=== PATIENT | male | born 1940 | race Caucasian/White ===

== ENCOUNTER 2017-04-12 09:42 | Inpatient (IN) | payer MEDICARE ==
--- NOTE | 2017-03-30 10:30 | HP ---
AMENDED REPORT NOW INCLUDES COSIGNER DESIGNATION - ESIGNED BEFORE ADJUSTMENTS HISTORY AND PHYSICAL: DATE OF ADMISSION/SURGERY: 04/12/17 DATE OF OFFICE VISIT: 03/30/17 SURGEON: Mariana Davis MD * (DICTATED BY SHARONA BANKS) PROCEDURE: Left total knee arthroplasty. CHIEF COMPLAINT: Left knee pain. HISTORY OF PRESENT ILLNESS: Mr. Rosales is a 76-year-old gentleman with continued complaints of left knee pain secondary to severe osteoarthritis. He has failed conservative management and has elected to proceed with a left total knee arthroplasty. PAST MEDICAL HISTORY: Coronary artery disease, high cholesterol, diabetes, history of prostate cancer. PAST SURGICAL HISTORY: CABG, prostatectomy, and appendectomy. CURRENT MEDICATIONS: 1. Toprol 25 mg daily. 2. Aspirin 81 mg daily. 3. Zetia 10 mg daily. 4. Metformin 1000 mg 2 tabs twice a day. 5. Januvia 50 mg daily. 6. Crestor 20 mg daily. 7. Diovan 8 mg daily. 8. Invokana 100 mg daily. ALLERGIES: None. FAMILY HISTORY: Diabetes, heart disease, stroke. SOCIAL HISTORY: He is a 76-year-old gentleman. 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 He does not smoke or use drugs. He uses occasional alcohol. REVIEW OF SYSTEMS: A complete 14-point review of systems is reviewed with the patient, is positive for diabetes. PHYSICAL EXAMINATION GENERAL: He is well developed, well nourished, in no acute distress. VITAL SIGNS: He stands 6 feet tall, weighs 200 pounds. His blood pressure is 116/68, his heart rate is 70. HEENT: Normocephalic, atraumatic. NECK: Supple. No palpable lymph nodes. PULMONARY: Lungs are clear to auscultation bilaterally. CARDIO: Regular rate and rhythm. Strong S1, S2. ABDOMEN: Soft, nontender, nondistended. NEUROLOGIC: He is alert and oriented x3. Cranial nerves II through XII are intact. MUSCULOSKELETAL: Left lower extremity, the skin is intact. There are no open wounds or abrasions. He has some tenderness over the medial and lateral joint line, 5 to 125 degrees of range of motion, no varus or valgus instability, 2+ dorsalis pedis pulses, and intact sensation. ASSESSMENT AND PLAN: Mr. Rosales is a 76-year-old gentleman with complaints of left knee pain secondary to severe osteoarthritis. He has failed conservative management and has elected to proceed with a left total knee arthroplasty, which is scheduled for 04/12/[address] Davis discussed the risks and benefits of the surgery at today's visit and all of his questions were answered. Coumadin, Percocet, and Colace were sent to his pharmacy for postoperative pain control and DVT prophylaxis. He will see Dr. Davis back 2 weeks after the surgery. SHARONA BANKS [id number]/[facility] #: [id number] JAK
[~2017-04-12 09:42] MED LIST: Buffered Lidocaine 0.9% SYRIN* 5 ML/SYR SYRINGE INTRADERM ONE; Gabapentin CAP(*) 400 MG PO ONE
[2017-04-12] MEDS ORDERED: ceFAZolin 2 GM PREMIX (*) 50 ML IVPB ONE (09:52)
[2017-04-12] MEDS ORDERED: Gabapentin CAP(*) 300 MG ONE (09:52)
[2017-04-12] MEDS ORDERED: Buffered Lidocaine 0.9% SYRIN* 5 ML/SYR SYRINGE ONE (09:52)
[2017-04-12] MEDS ORDERED: Metoprolol Succinate XL TAB* 25 MG PO ONE (12:00)
[2017-04-12] MEDS ORDERED: fentaNYL* 50 MCG/ML 2 ML VIAL (100 MCG VIAL) ONE ×3 (12:15→15:58)
[2017-04-12] MEDS ORDERED: Midazolam* 1 MG/ML 5 ML VIAL (5 MG) ONE ×2 (12:16→13:30)
[2017-04-12] MEDS ORDERED: Lidocaine 2% EPI 1:200000 MPF* 20 ML VIAL ONE ×2 (12:18→12:40)
[2017-04-12] MEDS ORDERED: Lactated Ringers 500 ml BAG* 500 ML IV PRN (13:26)
[2017-04-12] MEDS ORDERED: DiMENhydriNATE IV* 50 MG/ML VIAL IV PUSH PRN (13:35)
[2017-04-12] MEDS ORDERED: Ketorolac INJ* 30 MG/ML 1 ML VIAL IV PRN (13:35)
[2017-04-12] MEDS ORDERED: HYDROcodone/ACETAMIN 5-325 MG* 1 TAB PO PRN (13:35)
[2017-04-12] MEDS ORDERED: Ropivacaine 0.2% EPIDURAL* 200 MG/100 ML BAG EPIDURAL SCH (14:00)
[2017-04-12] MEDS ORDERED: Propofol* 10 MG/ML 20 ML BTL IV PUSH ONE (14:04)
[2017-04-12] MEDS ORDERED: Phenylephrine IV* 40 MCG/ML 10 ML SYRINGE ONE (14:18)
[2017-04-12] MEDS ORDERED: Ropivacaine 0.2% EPIDURAL* 200 MG/100 ML BAG EPIDURAL ONE (14:20)
[2017-04-12] MEDS ORDERED: Polyethylene Glycol 3350* 17 GM PACKET PO PRN (15:32)
[2017-04-12] MEDS ORDERED: Bisacodyl SUPP* 10 MG SUPP PR PRN (15:32)
[2017-04-12] MEDS ORDERED: Acetaminophen TAB* 325 MG PO PRN (15:32)
[2017-04-12] MEDS ORDERED: diPHENhydraMINE IV* 50 MG/ML 1 ml VIAL (BENADRYL) IV PRN (15:32)
[2017-04-12] MEDS ORDERED: Ketorolac INJ* 30 MG/ML 1 ML VIAL ONE (15:58)
[2017-04-12] MEDS: fentaNYL* 50 MCG/ML 2 ML VIAL (100 MCG VIAL) IV PRN ×2 (16:03→16:12)
--- NOTE | 2017-04-12 16:32 | RAD ---
INDICATION: Status post total left knee replacement surgery. TECHNIQUE: 2 views of the left knee were obtained. FINDINGS: The patient is status post total left knee replacement surgery. The bones and prostheses are in normal alignment. There is a surgical drain present anterior to the distal femur. IMPRESSION: STATUS POST TOTAL LEFT KNEE REPLACEMENT SURGERY.
[2017-04-12] MEDS ORDERED: diPHENhydraMINE IV* 50 MG/ML 1 ml VIAL (BENADRYL) ONE (16:36)
[2017-04-12] MEDS ORDERED: Warfarin TAB(*) 6 MG PO ONE (17:00)
[2017-04-12] MEDS ORDERED: Valsartan TAB* 40 MG PO ONE (17:14)
[2017-04-12] MEDS ORDERED: oxyCODONE/Acetamin 5/325 MG* TAB ONE (18:05)
[2017-04-12] MEDS: Atorvastatin* 40 MG TAB PO SCH (18:20)
[2017-04-12] MEDS: Valsartan TAB* 80 MG PO SCH (18:20)
[2017-04-12] MEDS: PTO SitaGLIPtin (NF) 100 MG TAB PO SCH (18:21)
[2017-04-12] MEDS: Docusate CAP* 100 MG PO SCH (21:38)
[2017-04-12] MEDS: metFORMIN* 1,000 MG TAB PO SCH (21:38)
[2017-04-12] MEDS: ceFAZolin 1 GM VIAL(*) 1 GM in NS 0.9% 50 ML* 50 ML IVPB SCH (21:38)
[2017-04-12] MEDS ORDERED: oxyCODONE TAB* 5 MG TAB PO PRN (21:41)
[2017-04-12] MEDS ORDERED: Ondansetron TAB* 4 MG PO PRN (21:41)
[2017-04-12] MEDS ORDERED: oxyCODONE/Acetamin 5/325 MG* TAB PO PRN (21:41)
--- NOTE | 2017-04-12 23:08 | CONS ---
CC: Dr. Hieu Kirkland CONSULTATION REPORT: DATE OF CONSULT: 04/12/2017. REFERRING SURGEON: Dr. Mariana Davis. PRIMARY CARE DOCTOR: Dr. Francisco Kwong. MY ATTENDING WHILE IN THE HOSPITAL: Dr. Hieu Kirkland. REASON FOR CONSULT: Comanagement of comorbid medical conditions. HISTORY OF PRESENT ILLNESS: Mr. Rader is a 76-year-old gentleman, who is status post a left total knee arthroplasty. The patient states he has moderate throbbing pain at his surgical site. The patient underwent a spinal anesthesia which is beginning to wear off. The patient refused to rate his pain on a scale of 1 to 10. The patient denies any other symptoms including chest pain, shortness of breath, fever, chills, nausea, vomiting, headache, change in vision , dizziness, or abdominal pain. The patient denies any recent travel or any sick contacts. The patient denies any changes in urine. The patient is status post radical prostatectomy in 1998, but denies any urinary incontinence or retention. The patient denies any personal or family history of blood clots. The patient is a diabetic and never checks his blood sugar at home. The patient states his most recent hemoglobin A1c was around 7. The patient had an EBL of approximately 200 intraop and is currently on 2 L oxygen by nasal cannula. The patient does not wear oxygen at home. The patient only took his Toprol this morning and held all his other medications. PAST MEDICAL HISTORY: Coronary artery disease, high cholesterol, diabetes, history of prostate cancer diagnosed in 1998. PAST SURGICAL HISTORY: Five-vessel CABG in 1997, radical prostatectomy in 1998 , appendectomy 7 years ago. CURRENT MEDICATIONS: 1. Toprol 25 mg p.o. daily. 2. Metformin 1000 mg 2 tabs b.i.d. 3. Januvia 50 mg p.o. daily. 4. Crestor 20 mg p.o. daily. 5. Diovan 80 mg p.o. daily. 6. Invokana 100 mg p.o. daily. The patient took an aspirin 81 mg p.o. daily until 2 weeks ago. ALLERGIES: None. FAMILY HISTORY: The patient endorses a family history significant for diabetes , heart disease, stroke, ovarian cancer, and thyroid cancer. SOCIAL HISTORY: The patient is , has 1 daughter. Lives in [place]. 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 He does not smoke or use drugs. The patient uses occasional alcohol. REVIEW OF SYSTEMS: A 14-point review of systems was reviewed with the patient and is negative except for as stated in the HPI. PHYSICAL EXAM: General: The patient is a 76-year-old male, who appears his stated age, who is sitting comfortably in the bed in the PACU, in no acute distress. Vital Signs: Temperature at 1532 is 97.7. Vital Signs at the time of examination, pulse rate 67, respiratory rate 14, oxygen saturation 96% on 2 L of oxygen, and blood pressure 167/81. HEENT: Head normocephalic, atraumatic. Eyes: Sclerae anicteric. No conjunctival injection. Pharynx nonerythematous. Mucous membranes moist. Neck: Supple and nontender. No lymphadenopathy and no carotid bruits auscultated. Cardiac: Regular rate and rhythm. Grade 2/6 systolic murmur heard best at the second intercoastal space. The right sternal border auscultated, no clicks, gallops, or rubs. Pulses 2+ in the bilateral radial, posterior tibialis, and dorsalis pedis areas. Respiratory: Clear to auscultation bilaterally. No wheezes, rales, or rhonchi. Good air exchange bilaterally. Abdomen: Hyperactive bowel sounds present in all 4 quadrants, nondistended. There is a pouch in the midline of the abdomen consistent with diastasis recti. No tenderness to palpation, no masses, no hepatosplenomegaly, and no abdominal bruits auscultated. Genitourinary: No suprapubic tenderness. Neurologic: Alert and oriented x3. Cranial nerves II through XII are grossly intact. Skin: Clean, dry, intact, and nondiaphoretic. Surgical incision is covered by bulky dressing with a cold pack attached. ASSESSMENT, PLAN, AND IMPRESSION: The patient is a 76-year-old male who is stable postoperatively from a left total knee arthroplasty. The patient has a history of diabetes and hypertension for which he will resume his home medication regimen. 1. Postoperative state. The patient is in no acute distress. The patient's pain is well controlled. Pain control per primary team with Percocet and morphine. Bowel regimen per primary team. DVT prophylaxis per primary team. 2. Hypertension. The patient is relatively hypertensive at this time. The patient was scheduled to have home Diovan tonight. We will give half a dose at 40 mg tonight and continue to monitor. The patient took his Toprol this morning and it will be resumed tomorrow morning as well. 3. Diabetes mellitus, type 2. We will order fingersticks a.c. and continue the patient's home diabetic medication with the only exception of having his metformin dose to 1000 mg p.o. b.i.d. as opposed to 1999. 4. History of coronary artery disease. The patient had a stress test earlier this month with his central office repairer, Dr. Espino, which was read as low risk with normal ejection fraction. The patient does not show any signs of congestive heart failure and is not currently having any chest pain. Continue to monitor. 5. Hyperlipidemia. Continue home Crestor. 6. DVT prophylaxis. The patient will be on subcutaneous Lovenox 40 mg q.24 hours as a bridge to warfarin. We will check INR daily. 7. FEN. The patient has fluids, has lactated Ringer's running at 200 mL an hour. The patient has a consistent carbohydrate diet starting tonight with dinner. 8. Code status. The patient is a full code. The patient's health care proxy is his , Taina Rosales. 9. Disposition. The patient is admitted to the surgical stay unit. Disposition per primary team. TIME SPENT: Approximately an hour was spent on this consultation, half of which was spent [id number] with the patient obtaining history and physical. Plan was discussed with my attending, Dr. Hieu Kirkland, and he is in agreement. SHARONA PRESTON [id number]/[facility] #: [id number] MTDD
[2017-04-13] MEDS: oxyCODONE/Acetamin 5/325 MG* TAB PO PRN ×5 (02:00→20:50)
[2017-04-13] MEDS: ceFAZolin 1 GM VIAL(*) 1 GM in NS 0.9% 50 ML* 50 ML IVPB SCH ×2 (04:19→12:28)
--- NOTE | 2017-04-13 05:19 | OP ---
OPERATIVE REPORT: DATE OF OPERATION: 04/12/17 DATE OF : 40 SURGEON: Mariana Davis MD RESIDENTIAL SERVICE TECHNICIAN: SHARONA Dawkins Ms. did help throughout the procedure with preparation of the leg, wound retraction, manipu lation of the knee, and wound closure. ANESTHESIOLOGIST: Beka Buck MD ANESTHESIA: Spinal. PRE-OP DIAGNOSES: Severe end-stage degenerative osteoarthritis of the left knee joint with varus de formity. POST-OP DIAGNOSES: Severe end-stage degenerative osteoarthritis of the left knee joint with varus d eformity. OPERATIVE PROCEDURE: Left total knee arthroplasty. INDICATIONS: Mr. Rosales is a 76-year-old gentleman with years of increasingly severe left knee jing n and varus deformity. He failed conservative treatment with antiinflammatories, physical therapy, and intraarticular injections. Due to continued pain and decreased quality of life, he elected to u ndergo left total knee arthroplasty. Informed consent was obtained from the patient. He understood the risks of the surgery included but were not limited to bleeding, infection, damage to nearby str uctures, continued pain, need for further surgery, intraoperative fracture, nerve palsy, hardware fa ilure or loosening, knee stiffness, loss of motion, stroke, heart attack, blood clot, and . He wished to proceed. COMPLICATIONS: None. TOURNIQUET TIME: 53 minutes. ESTIMATED BLOOD LOSS: 300 cc. COMPLICATIONS: None. SPECIMEN: Bone and cartilage from the left knee joint sent to Pathology. HARDWARE USED: Cemented Real [employer]hew orthopedic hardware. Two packages of simplex bone cement. Fo r the femur, a size 6 left posterior stabilized Legion Oxinium femoral component. For the tibia, si ze 6 left tibial base plate. For the insert, a 9-mm posterior stabilized articular insert size 5/6, 9 mm. For the patella, 35- mm 3-peg all poly patella. INTRAOPERATIVE FINDINGS: Intraoperatively, the patient was noted to have severe varus deformity of 15 degrees preop. 20-degree flexion contracture. Both of these were corrected during surgery. Pos top range of motion was full extension to 130 degrees of flexion. There was severe end-stage arthri tis in a tricompartmental fashion. Medial tibial plateau had bony deformity due to chronic wear. DESCRIPTION OF PROCEDURE: Mr. Rosales was identified in the preanesthesia unit. His left lower extr emity was marked as the correct operative side. Informed consent was signed and placed in the chart . The patient was taken to the operating room and placed under spinal anesthesia. A Shay catheter was placed. A tourniquet was placed on the left thigh. Left lower extremity was prepped and drape d in the usual sterile fashion. Preop time-out was made to correctly identify the patient's side an d site. Appropriate perioperative antibiotics were given within 1 hour of incision. The tourniquet was inflated and the total tourniquet time for this procedure was 53 minutes. A 14-c m midline incision was made with a 10 blade. This was carried down to the extensor mechanism. A ne w 10 blade was used to make a standard medial parapatellar arthrotomy. The patella was subluxed laterally. Electrocautery was used to subperiosteally elevate the soft tis deanne off the superomedial tibia. Any osteophytes were carefully removed. Knee was flexed up. The a nterior horn of the lateral meniscus and the ACL were sharply released. The drill was used to enter the distal femur. Intramedullary distal femoral cutting guide was pinned on the distal femur. Oscil lating saw was used to make the appropriate distal femoral cut. External rotation guide was pinned on the distal femur and the distal femur was sized to a size 6. Size 6 multi-cutting jig was pinned on the distal femur. Oscillating saw was used to make the appropriate 4 chamfer cuts. The bony fr agments were carefully removed. Next, the PCL was completely released. The extramedullary tibial c utting guide was pinned on the proximal tibia. It was noted that there was significant medial tibia l plateau bone loss due to chronic wear. Oscillating saw was used to make the proximal tibial cut p erpendicular to the mechanical axis of the tibia. Any medial osteophytes were carefully removed. The knee was brought out into full extension. Space r block had good fit. There was good medial and lateral ligamentous balancing. Good flexion and ex tension gap balancing. The knee was flexed up. Lamina beader was placed both medially and latera lly. Any remaining meniscus was carefully excised using electrocautery. Curved osteotome was used to remove posterior osteophytes. Tibial tray and drop debi were placed to once again confirm a satis factory tibial cut. This was confirmed. A size 6 left femoral trial was impacted on to the distal femur. This trial had good fit. The box for the posterior stabilized implant was prepared using a reamer and box cut osteotome. Trial size 6 tibial tray with a 9-mm insert trial was placed. The knee was taken through range of motion and n oted to have full extension to 130 degrees of flexion. There was satisfactory patellofemoral tracki ng. Patella was everted. 9 mm of patellar bone and cartilage was carefully removed with an oscillating saw. The patella was sized to a size 35. Three peg holes were drilled through the size 35 guide. A 35 trial patella was placed and the knee was taken through range of motion. Patellofemoral tracki ng was satisfactory. All trials were carefully removed. The tibia was carefully subluxed anteriorly. The tibia was sized to a size 6. Proximal tibia was prepared using a size 6 keel punch. All bony cut surfaces were co piously irrigated with sterile saline and dried. Final implants were cemented into place starting w ith the tibia followed by the femur and lastly patella. 9-mm insert trial was placed while the knee was brought out into full extension. The tourniquet was turned down at 53 minutes. The cement was allowed to fully cure. The knee was copiously irrigated with sterile saline. Once t he cement had fully cured, the insert trial was removed. Any excess cement was carefully removed fro m around the implant and capsule. Electrocautery was used to obtain meticulous hemostasis. Final insert chosen was a 9-mm posterior stabilized articular insert size 5/6. This was locked into position on the tibial tray. Stability of the insert was checked and rechecked and noted to be stab le. The knee was copiously irrigated with sterile saline. Extensor mechanism was closed using interrupt ed #1 Vicryl's over medium Hemovac drain. The rest of the incision was closed in a layered fashion using 0 and 2-0 Vicryl's. The skin was closed using running 3-0 nylon suture. Sterile Xeroform, 4x 4's, and Webril were used to cover the incision. Kemar wrap and cold pack were placed over this. The patient's anesthesia was reversed without difficulty. He was taken to the PACU in stable condit ion. Intended weightbearing will be weightbearing as tolerated. Intended DVT prophylaxis will be Co umadin with Lovenox bridge. [id number]/[facility] #: [id number]
[2017-04-13 06:10] LABS: Hematocrit 31 % (42-52); Hemoglobin 10.7 g/dl (14.0-18.0); Mean Corpuscular HGB Conc 34 g/dl (31-36); Mean Corpuscular Hemoglobin 32 pg (27-31); Mean Corpuscular Volume 94 fL (80-94); Mean Platelet Volume 9 um3 (7.4-10.4); Red Blood Count 3.34 10^6/ul (4.0-5.4); Red Cell Distribution Width 13 % (10.5-15)
[2017-04-13 06:46] LABS: BUN/Creatinine Ratio 18.3 (8-20); Calcium 7.9 mg/dL (8.6-10.3); EGFR African American 117.5 (>60); EGFR Non-African American 91.3 (>60); Potassium 3.9 mmol/L (3.5-5.0)
[2017-04-13] MEDS ORDERED: oxyCODONE/Acetamin 5/325 MG* TAB PO PRN (07:00)
[2017-04-13] MEDS: Canagliflozin (NF) 100 MG TAB PO SCH (07:45)
[2017-04-13] MEDS: Docusate CAP* 100 MG PO SCH ×2 (07:58→20:50)
[2017-04-13] MEDS: Metoprolol Succinate XL TAB* 25 MG PO SCH (07:58)
[2017-04-13] MEDS: Magnesium Hydroxide LIQ* 30 ML UDC PO PRN (07:58)
[2017-04-13] MEDS: metFORMIN* 1,000 MG TAB PO SCH ×2 (07:59→20:50)
[2017-04-13] MEDS ORDERED: Pneumococcal *Vac Polyvalent 0.5 ML VIAL IM ONE (09:00)
[2017-04-13] MEDS: Morphine INJ* 2 MG/ML 1 ML SYRINGE (TWO MG - NEW SYRINGE VERSION) IV PRN ×2 (10:09→16:20)
--- NOTE | 2017-04-13 11:38 | PN ---
Progress Note - Progress Note Date of Service: 04/13/17 SOAP: Subjective: []Patient seen OOB in chair, present. Pain better controlled. Denies SOB, CP or dizziness. Objective: [] Vital Signs Temp 98.6 F 04/13/17 07:38 Pulse 75 04/13/17 07:38 Resp 16 04/13/17 11:09 BP 127/58 04/13/17 07:38 Pulse Ox 98 04/13/17 07:38 Intake & Output 04/12/17 04/13/17 04/13/17 18:59 06:59 18:59 Intake Total 2750 1900 310 Output Total 200 550 Balance 2550 1350 310 Intake: IV Fluids 2750 1000 ABX - CEFAZOLIN 50 LR 2700 950 NS 50ML, Cefazolin 2G 50 Oral 900 310 Output: Urine 100 Shay 450 Estimated Blood Loss 200 Other: # Bowel Movements 0 Laboratory Results - last 24 hr 04/12/17 04/13/17 04/13/17 17:44 05:58 05:58 WBC RBC Hgb Hct MCV MCH MCHC RDW Plt Count MPV Neut % (Auto) Lymph % (Auto) Snyder % (Auto) Eos % (Auto) Baso % (Auto) Absolute Neuts (auto) Absolute Lymphs (auto) Absolute Monos (auto) Absolute Eos (auto) Absolute Basos (auto) Absolute Nucleated RBC Nucleated RBC % INR (Anticoag Therapy) 1.07 Sodium 136 Potassium 3.9 Chloride 104 Carbon Dioxide 28 Anion Gap 4 BUN 15 Creatinine 0.82 Est GFR ( Amer) 117.5 Est GFR (Non-Af Amer) 91.3 BUN/Creatinine Ratio 18.3 Glucose 151 H POC Glucose (mg/dL) 129 H Calcium 7.9 L 04/13/17 05:58 WBC 7.0 RBC 3.34 L Hgb 10.7 L Hct 31 L MCV 94 MCH 32 H MCHC 34 RDW 13 Plt Count 125 L MPV 9 Neut % (Auto) 76.4 Lymph % (Auto) 10.6 L Snyder % (Auto) 11.2 H Eos % (Auto) 1.5 Baso % (Auto) 0.3 Absolute Neuts (auto) 5.4 Absolute Lymphs (auto) 0.7 L Absolute Monos (auto) 0.8 Absolute Eos (auto) 0.1 Absolute Basos (auto) 0 Absolute Nucleated RBC 0 Nucleated RBC % 0 INR (Anticoag Therapy) Sodium Potassium Chloride Carbon Dioxide Anion Gap BUN Creatinine Est GFR ( Amer) Est GFR (Non-Af Amer) BUN/Creatinine Ratio Glucose POC Glucose (mg/dL) Calcium Left knee dressings dry and intact, hemovac drain discontinued by Dr. Davis without complication, tip intact calf NT and soft +DF/PF left ankle sensation intact distally Assessment: []s/p Left total knee arthroplasty POD #1 Plan: []PT/OT WBAT LLE Coumadin with Lovenox bridge- 8 mg today Probable discharge home tomorrow
[2017-04-13] MEDS ORDERED: Enoxaparin(*) 30 MG/0.3 ML SYR SUBCUT SCH ×2 (12:00)
[2017-04-13] MEDS: Enoxaparin(*) 40 MG/0.4 ML SYR SUBCUT SCH (12:36)
--- NOTE | 2017-04-13 14:13 | PN ---
Subjective Date of Service: 04/13/17 Interval History: Patient has no acute complaints overnight. Pain 5/10 in knee after PT with good response to morphine. Patient has stinging and hesitancy with voiding. No CP, SOB, Abdominal pain, N/V, Dizziness, F/C. Family History: Unchanged from Admission Social History: Unchanged from Admission Past Medical History: Unchanged from Admission Objective Active Medications: Acetaminophen (Tylenol Tab*) 650 mg PO Q4H PRN PRN Reason: PAIN OR TEMPERATURE Atorvastatin Calcium (Lipitor*) 40 mg PO QPM [facility] Last Admin: 04/12/17 18:20 Dose: 40 mg Bisacodyl (Dulcolax Supp*) 10 mg OR DAILY PRN PRN Reason: constipation Canagliflozin (Invokana (Nf)) 100 mg PO QAM [facility] Last Admin: 04/13/17 07:45 Dose: Not Given Diphenhydramine HCl (Benadryl Iv*) 12.5 mg IV Q6H PRN PRN Reason: PRURITIS Last Admin: 04/12/17 16:37 Dose: 12.5 mg Docusate Sodium (Colace Cap*) 100 mg PO BID [facility] Last Admin: 04/13/17 07:58 Dose: 100 mg Enoxaparin Sodium (Lovenox(*)) 40 mg SUBCUT Q24H [facility] Last Admin: 04/13/17 12:36 Dose: Not Given Lactated Ringer's (Lactated Ringers 1000 Ml Bag*) 1,000 mls @ 100 mls/hr IV PER RATE [facility] Last Admin: 04/13/17 04:18 Dose: 100 mls/hr Lactulose (Lactulose*) 30 ml PO Q6H PRN PRN Reason: constipation Magnesium Hydroxide (Milk Of Magnesia Liq*) 30 ml PO Q6H PRN PRN Reason: constipation Last Admin: 04/13/17 07:58 Dose: 30 ml Metformin HCl (Glucophage*) 1,000 mg PO BID [facility] Last Admin: 04/13/17 07:59 Dose: 1,000 mg Metoprolol Succinate (Toprol Xl Tab*) 25 mg PO DAILY [facility] Last Admin: 04/13/17 07:58 Dose: 25 mg Morphine Sulfate (Morphine Inj (Syringe)*) 2 mg IV Q2H PRN PRN Reason: PAIN Last Admin: 04/13/17 10:09 Dose: 2 mg Ondansetron HCl (Zofran Tab*) 4 mg PO Q6H PRN PRN Reason: NAUSEA Oxycodone HCl (Roxycodone Tab*) 10 mg PO Q4H PRN PRN Reason: SEVERE PAIN Oxycodone/Acetaminophen (Percocet 5/325 Tab*) 1 tab PO Q3H PRN PRN Reason: PAIN - MODERATE Oxycodone/Acetaminophen (Percocet 5/325 Tab*) 2 tab PO Q3H PRN PRN Reason: PAIN - MODERATE Last Admin: 04/13/17 12:27 Dose: 2 tab Pharmacy Profile Note (Coumadin Daily Reminder*) 1 note FOLLOW UP 1700 [facility] Polyethylene Glycol/Electrolytes (Miralax*) 17 gm PO DAILY PRN PRN Reason: Constipation Sitagliptin Phosphate (Januvia (Nf)) 100 mg PO QPM [facility] PRN Reason: Protocol Last Admin: 04/12/17 18:21 Dose: Not Given Valsartan (Diovan Tab*) 80 mg PO QPM [facility] Last Admin: 04/12/17 18:20 Dose: 80 mg Warfarin Sodium (Coumadin Tab(*)) 8 mg PO ONCE@1700 ONE PRN Reason: Protocol Stop: 04/13/17 17:01 Vital Signs 04/12/17 04/12/17 04/12/17 15:32 15:35 15:40 Temperature 97.7 F Pulse Rate 68 70 70 Respiratory 20 18 16 Rate Blood Pressure 153/83 160/91 141/82 (mmHg) O2 Sat by Pulse 97 98 97 Oximetry 04/12/17 04/12/17 04/12/17 15:45 16:00 16:03 Temperature Pulse Rate 69 69 Respiratory 14 16 16 Rate Blood Pressure 158/79 155/76 (mmHg) O2 Sat by Pulse 98 98 Oximetry 04/12/17 04/12/17 04/12/17 16:12 16:15 16:30 Temperature Pulse Rate 72 70 Respiratory 16 14 14 Rate Blood Pressure 182/97 167/85 (mmHg) O2 Sat by Pulse 96 97 Oximetry 04/12/17 04/12/17 04/12/17 17:00 17:11 17:25 Temperature 97 F Pulse Rate 68 67 100 Respiratory 14 14 20 Rate Blood Pressure 166/91 167/81 145/78 (mmHg) O2 Sat by Pulse 94 96 94 Oximetry 04/12/17 04/12/17 04/12/17 17:45 18:19 18:20 Temperature 98.1 F Pulse Rate 61 Respiratory 16 16 15 Rate Blood Pressure 122/65 (mmHg) O2 Sat by Pulse 93 Oximetry 04/12/17 04/12/17 04/12/17 18:34 19:56 20:00 Temperature 97.7 F 97.9 F Pulse Rate 70 72 Respiratory 18 16 18 Rate Blood Pressure 107/58 117/61 (mmHg) O2 Sat by Pulse 95 92 Oximetry 04/12/17 04/12/17 04/12/17 20:03 20:19 21:00 Temperature Pulse Rate Respiratory 16 16 16 Rate Blood Pressure (mmHg) O2 Sat by Pulse Oximetry 04/12/17 04/12/17 04/12/17 21:25 22:00 23:42 Temperature 97.8 F 98.5 F Pulse Rate 62 70 Respiratory 20 18 18 Rate Blood Pressure 123/65 124/67 (mmHg) O2 Sat by Pulse 93 94 Oximetry 04/13/17 04/13/17 04/13/17 00:00 02:00 03:31 Temperature 98.9 F Pulse Rate 78 Respiratory 16 18 Rate Blood Pressure 119/60 (mmHg) O2 Sat by Pulse 95 95 Oximetry 04/13/17 04/13/17 04/13/17 04:00 07:38 07:58 Temperature 98.6 F Pulse Rate 75 Respiratory 16 17 16 Rate Blood Pressure 127/58 (mmHg) O2 Sat by Pulse 98 Oximetry 04/13/17 04/13/17 04/13/17 10:09 11:09 12:27 Temperature Pulse Rate Respiratory 18 16 16 Rate Blood Pressure (mmHg) O2 Sat by Pulse Oximetry Oxygen Devices in Use Now: None Appearance: Patient is a 76yo male who appears stated age and is sitting comfortably in the chair in [facility]. Eyes: No Scleral Icterus, PERRLA Ears/Nose/Mouth/Throat: NL Teeth, Lips, Gums, Clear Oropharnyx, Mucous Membranes Moist Neck: NL Appearance and Movements; NL JVP Respiratory: Symmetrical Chest Expansion and Respiratory Effort, Clear to Auscultation Cardiovascular: NL Sounds; No Murmurs; No JVD, RRR, No Edema Abdominal: NL Sounds; No Tenderness; No Distention, No Hepatosplenomegaly Lymphatic: No Cervical Adenopathy Extremities: No Edema, No Clubbing, Cyanosis Skin: No Rash or Ulcers, - - Left knee wrapped in bulky dressing with ice pack Neurological: Alert and Oriented x 3 Result Diagrams: 04/13/17 05:58 04/13/17 05:58 Assess/Plan/Problems-Billing Assessment: Patient is a 76yo male with a PMH significant for DMII, CAD with bypass grafting x5 and prostate cancer s/p radical prostatectomy who is POD #1 after a total knee arthroplasty. Patient is on home doses of antihypertensives and antihyperglycemics and is normotensive and only slightly hyperglycemic. - Patient Problems (1) Diabetes mellitus Current Visit: Yes Status: Acute Code(s): E11.9 - TYPE 2 DIABETES MELLITUS WITHOUT COMPLICATIONS SNOMED Code(s): 30164603 Comment: Patient on 1,000mg Metformin BID with Januvia and Invokana ordered. Patient has not recieved invokana yet. Patient is only moderately hyperglycemic. Will continue all antihyperglyemics at home doses when available. (2) Hypertension Current Visit: Yes Status: Acute Code(s): I10 - ESSENTIAL (PRIMARY) HYPERTENSION SNOMED Code(s): 18119522 Comment: Patient normotensive on Toprol and Losartan at home doses. Will continue medications at home doses. (3) Coronary artery disease Current Visit: Yes Status: Acute Code(s): I25.10 - ATHSCL HEART DISEASE OF [place] CORONARY ARTERY W/O ANG PCTRS SNOMED Code(s): 60675395 Comment: No CP or SOB at this time. Patient normotensive, Stress test from earlier this month was negative with normal EF. No other intervention needed. (4) Post-operative state Current Visit: Yes Status: Acute Code(s): Z98.890 - OTHER SPECIFIED POSTPROCEDURAL STATES SNOMED Code(s): 04675845 Comment: Pain well controlled. No BM yet. PT/OT. Management per primary team. (5) DVT prophylaxis Current Visit: Yes Status: Acute Code(s): YWT5843 - SNOMED Code(s): 474838160 Comment: Lovenox and warfarin perprimary team. (6) History of prostate cancer Current Visit: Yes Status: Acute Code(s): Z85.46 - PERSONAL HISTORY OF MALIGNANT NEOPLASM OF PROSTATE SNOMED Code(s): 955416432 Comment: Difficult insertion of catheter yesterday with hematuria and current dysuria. Will bladder scan after next void. Status and Disposition: Admitted inpatient. Status per primary team.
[2017-04-13] MEDS ORDERED: Warfarin TAB(*) 4 MG PO ONE (17:00)
[2017-04-13] MEDS: Valsartan TAB* 80 MG PO SCH (17:35)
[2017-04-13] MEDS: Atorvastatin* 40 MG TAB PO SCH (17:35)
[2017-04-13] MEDS: PTO SitaGLIPtin (NF) 100 MG TAB PO SCH (17:36)
--- NOTE | 2017-04-13 21:17 | CONS ---
UROLOGY CONSULTATION REPORT: DATE OF CONSULT: 04/13/17 REQUESTING PHYSICIAN: Dr. Mariana Davis.* DIAGNOSES: 1. Urinary retention. 2. Urethral stricture. HISTORY OF PRESENT ILLNESS: Prasanth Rosales is a 76-year-old gentleman with a remote history of prostate cancer for which he underwent radical retropubic prostatectomy. He was recently in for a left total knee replacement and according to the nursing staff, there was some difficulty placing a Shay catheter intraoperatively on 04/12/17. According to the floor nursing staff, he did have some bleeding associated with that catheter and the catheter was removed early this morning and he has not been able to void for the last 8 to 9 hours. PHYSICAL EXAM: On examination, he is in a moderate degree of discomfort and the bladder appears distended. Phallus is normal with no evidence of meatal stenosis noted. 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 Next, a 16 [place] Shay catheter was introduced without difficulty and more than 500 cc of urine was drained. My recommendation is to leave the Shay catheter in for at least the next 2 to 3 days which would probably mean sending him home with a Shay catheter and a leg bag and I will see him in followup as an outpatient and give him a voiding trial and then monitor his postvoid residual. [id number]/[facility] #: [id number] MTDD
[2017-04-14] MEDS: oxyCODONE/Acetamin 5/325 MG* TAB PO PRN ×3 (04:33→12:06)
[2017-04-14 07:37] LABS: Hematocrit 30 % (42-52); Hemoglobin 10.4 g/dl (14.0-18.0)
[2017-04-14] MEDS: Docusate CAP* 100 MG PO SCH ×2 (08:33→21:43)
[2017-04-14] MEDS: Metoprolol Succinate XL TAB* 25 MG PO SCH (08:33)
[2017-04-14] MEDS: metFORMIN* 1,000 MG TAB PO SCH ×2 (08:33→21:43)
[2017-04-14] MEDS: Magnesium Hydroxide LIQ* 30 ML UDC PO PRN (08:34)
[2017-04-14] MEDS: Canagliflozin (NF) 100 MG TAB PO SCH ×2 (09:15→12:49)
--- NOTE | 2017-04-14 10:08 | PN ---
Progress Note - Progress Note Date of Service: 04/14/17 SOAP: Subjective: []Patient seen at bedside, pain fairly well managed with Toradol. IV was pulled out accidentally by patient this am. He c/o constipation- had colace and MOM this am. Hopes he will be able to go home Tuesday. Objective: [] Vital Signs Temp 99.2 F 04/14/17 07:39 Pulse 89 04/14/17 07:39 Resp 16 04/14/17 08:33 BP 123/56 04/14/17 07:39 Pulse Ox 93 04/14/17 07:39 Intake & Output 04/13/17 04/14/17 04/14/17 18:59 06:59 18:59 Intake Total 2306 500 Output Total 0 2500 550 Balance 2306 -2000 -550 Intake: IV Fluids 1346 ABX - CEFAZOLIN 105 LR 1241 IVPB 110 LR 110 Oral 850 500 Output: Urine 0 Shay 2500 550 Other: # Bowel Movements 0 Laboratory Results - last 24 hr 04/13/17 04/13/17 04/14/17 12:34 17:48 06:56 Hgb 10.4 L Hct 30 L INR (Anticoag Therapy) POC Glucose (mg/dL) 171 H 178 H 04/14/17 04/14/17 06:56 08:17 Hgb Hct INR (Anticoag Therapy) 1.35 H POC Glucose (mg/dL) 248 H Left knee dressings were changed, wound benign calf NT and soft +DF/PF left ankle sensation and circulation intact distally new 4x4s and JEN applied Assessment: []s/p Left total knee arthroplasty POD #2 Plan: []PT/OT WBAT Bowel meds for constipation po Toradol prn breaktrhu pain Coumadin with Lovenox bridge- 6 mg today Discharge home with VNS 04/15 if stable
[2017-04-14] MEDS ORDERED: Ketorolac TAB * 10 MG TAB PO PRN (10:09)
[2017-04-14] MEDS: Enoxaparin(*) 40 MG/0.4 ML SYR SUBCUT SCH (12:09)
[2017-04-14] MEDS ORDERED: Dextrose 50% Syringe 50 ML* 25 GM/50 ML SYRINGE IV PUSH PRN (14:09)
--- NOTE | 2017-04-14 16:47 | PN ---
Subjective Date of Service: 04/14/17 Interval History: Patient seen and examined at bedside. Patient states pain controlled and likely he will go home tomorrow. Shay in place. Family History: Unchanged from Admission Social History: Unchanged from Admission Past Medical History: Unchanged from Admission Objective Active Medications: Acetaminophen (Tylenol Tab*) 650 mg PO Q4H PRN PRN Reason: PAIN OR TEMPERATURE Atorvastatin Calcium (Lipitor*) 40 mg PO QPM [facility] Last Admin: 04/13/17 17:35 Dose: 40 mg Bisacodyl (Dulcolax Supp*) 10 mg [place] DAILY PRN PRN Reason: constipation Canagliflozin (Invokana (Nf)) 100 mg PO QAM [facility] Dextrose (D50w Syringe 50 Ml*) 12.5 gm IV PUSH .FOR FS < 60 - SS PRN PRN Reason: FS < 60 Diphenhydramine HCl (Benadryl Iv*) 12.5 mg IV Q6H PRN PRN Reason: PRURITIS Last Admin: 04/12/17 16:37 Dose: 12.5 mg Docusate Sodium (Colace Cap*) 100 mg PO BID [facility] Last Admin: 04/14/17 08:33 Dose: 100 mg Enoxaparin Sodium (Lovenox(*)) 40 mg SUBCUT Q24H [facility] Last Admin: 04/14/17 12:09 Dose: 40 mg Lactated Ringer's (Lactated Ringers 1000 Ml Bag*) 1,000 mls @ 100 mls/hr IV PER RATE [facility] Last Admin: 04/13/17 15:33 Dose: 100 mls/hr Insulin Human Lispro (Humalog*) 0 - 12 units SUBCUT ACHS [facility] PRN Reason: Protocol Ketorolac Tromethamine (Toradol Tab *) 10 mg PO Q6H PRN PRN Reason: breakthru pain Stop: 04/19/17 10:08 Last Admin: 04/14/17 12:35 Dose: 10 mg Lactulose (Lactulose*) 30 ml PO Q6H PRN PRN Reason: constipation Last Admin: 04/14/17 12:06 Dose: 30 ml Magnesium Hydroxide (Milk Of Magnesia Liq*) 30 ml PO Q6H PRN PRN Reason: constipation Last Admin: 04/14/17 08:34 Dose: 30 ml Metformin HCl (Glucophage*) 1,000 mg PO BID [facility] Last Admin: 04/14/17 08:33 Dose: 1,000 mg Metoprolol Succinate (Toprol Xl Tab*) 25 mg PO DAILY [facility] Last Admin: 04/14/17 08:33 Dose: 25 mg Morphine Sulfate (Morphine Inj (Syringe)*) 2 mg IV Q2H PRN PRN Reason: PAIN Last Admin: 04/13/17 16:20 Dose: 2 mg Ondansetron HCl (Zofran Tab*) 4 mg PO Q6H PRN PRN Reason: NAUSEA Oxycodone HCl (Roxycodone Tab*) 10 mg PO Q4H PRN PRN Reason: SEVERE PAIN Oxycodone/Acetaminophen (Percocet 5/325 Tab*) 1 tab PO Q3H PRN PRN Reason: PAIN - MODERATE Oxycodone/Acetaminophen (Percocet 5/325 Tab*) 2 tab PO Q3H PRN PRN Reason: PAIN - MODERATE Last Admin: 04/14/17 12:06 Dose: 2 tab Pharmacy Profile Note (Coumadin Daily Reminder*) 1 note FOLLOW UP 1700 [facility] Last Admin: 04/13/17 17:36 Dose: 1 note Polyethylene Glycol/Electrolytes (Miralax*) 17 gm PO DAILY PRN PRN Reason: Constipation Sitagliptin Phosphate (Januvia (Nf)) 100 mg PO QPM [facility] PRN Reason: Protocol Last Admin: 04/13/17 17:36 Dose: 100 mg Warfarin Sodium (Coumadin Tab(*)) 6 mg PO ONCE@1700 [facility] PRN Reason: Protocol Stop: 04/14/17 17:01 Vital Signs 04/13/17 04/13/17 04/13/17 17:06 17:20 17:31 Temperature Pulse Rate 83 Respiratory 16 16 Rate Blood Pressure (mmHg) O2 Sat by Pulse 95 Oximetry 04/13/17 04/13/17 04/13/17 19:44 20:50 20:57 Temperature 99.1 F Pulse Rate 79 Respiratory 18 16 16 Rate Blood Pressure 107/50 (mmHg) O2 Sat by Pulse 93 Oximetry 04/13/17 04/13/17 04/14/17 22:50 23:56 04:05 Temperature 98.0 F 98.2 F Pulse Rate 73 86 Respiratory 16 16 14 Rate Blood Pressure 91/41 121/50 (mmHg) O2 Sat by Pulse 92 96 Oximetry 04/14/17 04/14/17 04/14/17 04:33 07:00 07:35 Temperature Pulse Rate Respiratory 16 16 20 Rate Blood Pressure (mmHg) O2 Sat by Pulse 93 Oximetry 04/14/17 04/14/17 04/14/17 07:39 08:33 10:33 Temperature 99.2 F Pulse Rate 89 Respiratory 26 16 16 Rate Blood Pressure 123/56 (mmHg) O2 Sat by Pulse 93 Oximetry 04/14/17 04/14/17 04/14/17 11:06 12:06 16:00 Temperature 98.1 F Pulse Rate 86 Respiratory 24 20 Rate Blood Pressure 95/53 (mmHg) O2 Sat by Pulse 93 93 Oximetry Oxygen Devices in Use Now: None Appearance: sitting up in bed, NAD Eyes: No Scleral Icterus, PERRLA Ears/Nose/Mouth/Throat: NL Teeth, Lips, Gums Neck: NL Appearance and Movements; NL JVP Respiratory: Symmetrical Chest Expansion and Respiratory Effort, Clear to Auscultation Cardiovascular: NL Sounds; No Murmurs; No JVD, RRR Abdominal: NL Sounds; No Tenderness; No Distention Extremities: No Edema Skin: No Rash or Ulcers Neurological: Alert and Oriented x 3, NL Muscle Strength and Tone Lines/Tubes/Other Access: Clean, Dry and Intact Peripheral IV Nutrition: Taking PO's Result Diagrams: 04/14/17 06:56 04/13/17 05:58 Assess/Plan/Problems-Billing Assessment: Patient is a 76yo male with a PMH significant for DMII, CAD with bypass grafting x5 and prostate cancer s/p radical prostatectomy who is POD #1 after a total knee arthroplasty. Patient is on home doses of antihypertensives and antihyperglycemics and is normotensive and only slightly hyperglycemic. - Patient Problems (1) Post-operative state Comment: S/p Left total knee arthoplasty; Pain well controlled. H/H stable. (2) History of prostate cancer Comment: Agustina (Urology) re-inserted catheter yesterday afternoon. Plan for patient to keep catheter in 2-3 days with leg bag at discharge and follow-up as outpatient. (3) Coronary artery disease Comment: Patient normotensive, Stress test from earlier this month was negative with normal EF. Continue beta job. (4) Diabetes mellitus Comment: Glucose more controlled now that he is on all of his home medications. Continue Lispro sliding scale for coverage. (5) Hypertension Comment: Controlled with Toprol. Hold Losartan due to low BP. (6) DVT prophylaxis Comment: Lovenox and warfarin (7) Full code status Status and Disposition: Admitted inpatient. Dispo per Ortho.
[2017-04-14] MEDS ORDERED: Warfarin TAB(*) 6 MG PO SCH (17:00)
[2017-04-14] MEDS: Atorvastatin* 40 MG TAB PO SCH (18:27)
[2017-04-14] MEDS: PTO SitaGLIPtin (NF) 100 MG TAB PO SCH (18:27)
[2017-04-14] MEDS: Insulin LISPRO* 1 UNITS UNIT SUBCUT SCH ×2 (18:28→21:44)
[2017-04-15 07:06] LABS: Hematocrit 30 % (42-52); Hemoglobin 10.1 g/dl (14.0-18.0)
[2017-04-15] MEDS: Insulin LISPRO* 1 UNITS UNIT SUBCUT SCH (07:53)
[2017-04-15] MEDS: Docusate CAP* 100 MG PO SCH (08:21)
[2017-04-15] MEDS: metFORMIN* 1,000 MG TAB PO SCH (08:21)
[2017-04-15] MEDS: Metoprolol Succinate XL TAB* 25 MG PO SCH (08:21)
[2017-04-15 08:55] VITALS: BP 160/70
[2017-04-15] MEDS ORDERED: PTO:Canagliflozin (NF) 100 MG TAB PO SCH (09:00)
--- NOTE | 2017-04-15 10:09 | PN ---
Progress Note - Progress Note Date of Service: 04/15/17 SOAP: Subjective: []Patient seen at bedside, anxious to go home [place] today. Knee pain tolerable, Shay catheter in place. Objective: [] Vital Signs Temp 98.6 F 04/15/17 07:29 Pulse 101 04/15/17 07:29 Resp 18 04/15/17 08:21 BP 160/70 04/15/17 07:29 Pulse Ox 93 04/15/17 07:29 Intake & Output 04/14/17 04/15/17 04/15/17 18:59 06:59 18:59 Intake Total 440 300 225 Output Total 700 2450 Balance -260 -2150 225 Intake: Oral 440 300 225 Output: Shay 700 2450 Other: # Bowel Movements 1 0 Estimated Stool Amount Large Laboratory Results - last 24 hr 04/14/17 04/14/17 04/14/17 12:38 18:06 21:36 Hgb Hct INR (Anticoag Therapy) POC Glucose (mg/dL) 171 H 149 H 145 H 04/15/17 04/15/17 04/15/17 06:24 06:24 07:51 Hgb 10.1 L Hct 30 L INR (Anticoag Therapy) 1.62 H POC Glucose (mg/dL) 122 H Left knee incision benign calf NT and soft neuro remains intact distally Assessment: []s/p LTK POD #3 Plan: []6 mg Coumadin before discharge home today Follow up with Dr. Davis as scheduled.
[2017-04-15] MEDS ORDERED: Warfarin TAB(*) 6 MG PO ONE (11:00)
[2017-04-15] MEDS ORDERED: Enoxaparin(*) 40 MG/0.4 ML SYR SUBCUT SCH (12:00)
--- NOTE | 2017-04-16 02:10 | DS ---
DISCHARGE SUMMARY: DATE OF ADMISSION: 04/12/17 DATE OF DISCHARGE: 04/15/17 ATTENDING PHYSICIAN: Mariana Davis MD * (DICTATED BY SHARONA WHATLEY) ADMISSION DIAGNOSIS: Severe end-stage degenerative osteoarthritis of the left knee joint with varus deformity. DISCHARGE DIAGNOSES: 1. Severe end-stage degenerative osteoarthritis of the left knee joint with varus deformity. 2. Postoperative urinary retention and urethral stricture. SURGERY PERFORMED: Left total knee arthroplasty. HOSPITAL COURSE: The patient is a 76-year-old male with increasingly severe left knee pain and varus deformity. The patient failed conservative management with anti-inflammatories, physical therapy and intraarticular cortisone injections. He elected to proceed with left total knee arthroplasty and was taken to the operating room under the care of Dr. Mariana Davis on 04/12/17 for the aforementioned procedure. The patient had some bleeding noted at the time of his catheter placement intraoperatively. He had his catheter removed postoperative day #1 and was unable to void, therefore a Urology consult with Dr. Sam was placed. He did bedside procedure and placed new catheter, which was to remain in place for 2 to 3 days. The patient was to go home with the catheter and follow up in the office with him for voiding trial. Otherwise, the patient did very well and mastered his PT and OT goals, bearing weight as tolerated on his left lower extremity. He had no other complications and it was felt he was stable medically and orthopedically for discharge to home on . CONDITION ON DISCHARGE: The patient was afebrile. His vital signs were stable. His neurovascular status was intact in the left lower extremity. Incision was healing without evidence of infection. His calf was soft and nontender. PLAN: Discharge to home on 04/15/17. He will remain on Coumadin for his DVT prophylaxis. He was given 6 mg of Coumadin prior to his discharge today on and instructed to take 2 mg of Coumadin on 04/16/17, and 2 mg of Coumadin on 04/17/17. He is to have a repeat INR blood drawn on 04/18/17, with dosages from the office to follow. He will follow up with Dr. Davis as scheduled in 10 to 14 days. If he has any problems with increased swelling, any noted drainage, fever, chills, calf pain or swelling, the office is to be contacted prior to his scheduled appointment. The patient is to follow up with Dr. Sam, Tuesday or Tuesday this week for the voiding trial regarding his catheter. SHARONA WHATLEY [id number]/[facility] #: [id number] JAK
== END 2017-04-15 11:00 | disposition home or self-care (01) | DRG 470 ==
LOC: AA 09:42 → SSU 15:32
PROVIDERS: ADMIT Orthopaedic Surgery Adult Reconstructive Orthopaedic Surgery; ATTEND Orthopaedic Surgery Adult Reconstructive Orthopaedic Surgery
PROC: 0SRD0J9 Replacement of Left Knee Joint with Synthetic Substitute, Cemented, Open Approach (ICD-10-PCS; principal; 2017-04-12 12:00)
DX: M17.12 Unilateral primary osteoarthritis, left knee (principal); E11.65 Type 2 diabetes mellitus with hyperglycemia; I25.10 Atherosclerotic heart disease of native coronary artery without angina pectoris; N35.9 Urethral stricture, unspecified; M21.062 Valgus deformity, not elsewhere classified, left knee; R33.9 Retention of urine, unspecified; E78.00 Pure hypercholesterolemia, unspecified; Z85.46 Personal history of malignant neoplasm of prostate; Z95.1 Presence of aortocoronary bypass graft; Z83.3 Family history of diabetes mellitus; Z82.49 Family history of ischemic heart disease and other diseases of the circulatory system; Z82.3 Family history of stroke; Z80.41 Family history of malignant neoplasm of ovary; Z80.8 Family history of malignant neoplasm of other organs or systems
CPT/HCPCS: 36415; 62327; 80048; 85014; 85018; 85025; 85610; 94760; A9270-GY; C1776; J0690; J1200; J1580; J1650; J1885; J2250; J2270; J2704; J2795; J3010

== ENCOUNTER → 2017-04-28 14:00 | Emergency (ER) | payer MEDICARE ==
[~2017-04-28 14:00] MED LIST changes: -Buffered Lidocaine 0.9% SYRIN* 5 ML/SYR SYRINGE INTRADERM ONE; -Gabapentin CAP(*) 400 MG PO ONE; +NS 0.9% 1000 ML* 1,000 ML IV ONE
[2017-04-28 16:21] LABS: Hematocrit 36 % (42-52); Hemoglobin 12.1 g/dl (14.0-18.0); Mean Corpuscular HGB Conc 34 g/dl (31-36); Mean Corpuscular Hemoglobin 31 pg (27-31); Mean Corpuscular Volume 93 fL (80-94); Mean Platelet Volume 8 um3 (7.4-10.4); Red Blood Count 3.87 10^6/ul (4.0-5.4); Red Cell Distribution Width 13 % (10.5-15); White Blood Count 9.9 10^3/ul (3.5-10.8)
[2017-04-28 16:47] LABS: Albumin 4.3 g/dL (3.2-5.2); BUN/Creatinine Ratio 21.5 (8-20); Calcium 9.9 mg/dL (8.6-10.3); EGFR Non-African American 58.3 (>60); Globulin 3.5 g/dL (2-4); Potassium 3.9 mmol/L (3.5-5.0); Total Protein 7.8 g/dL (6.4-8.9)
--- NOTE | 2017-04-28 16:47 | RAD ---
Indication: Altered mental status. Confusion. LEFT total knee replacement 2 weeks ago. Comparison: No relevant prior exams available on the [facility] PACS for comparison. Technique: Noncontrast CT vertex of skull through foramen magnum. Report: Mild prominence of the cerebral sulci. Unremarkable ventricles and basal cisterns. Very small chronic lacunar infarct at the LEFT caudate head. Negative for rider matter white matter obscuration, intra or extra-axial hemorrhage, or mass effect. Unremarkable orbital contents. No suspicious calvarial or skull base lesion evident. Mucosal thickening partially visualized at the incompletely visualized inferior aspect of the LEFT maxillary sinus. The visualized paranasal sinuses are otherwise clear. Clear mastoid air spaces. Unremarkable scalp. IMPRESSION: 1. No acute intracranial process evident. 2. Very small chronic lacunar infarct at the LEFT caudate head. 3. Mild involutional change.
--- NOTE | 2017-04-28 18:11 | ED ---
Altered Mental Status - HPI Summary HPI Summary: Patient presents to the ED with . states he has been "confused" for a few days with today having 2 episodes of confusion. Today, he was confused upon wakening and felt it was evening time. Patient has had knee replacement surgery but has not taken his pain medications for relief. Per his he has not been drinking any water and could have a UTI. Denies any slurred speech, facial droop. Alert and oriented to person, place and time. Denies urinary symptoms. Denies back pain or VILLA. He states he has been otherwise feeling well except for the occasional left knee pain. Denies fevers, sweats or chills. Denies sick contacts and travel. - History Of Current Complaint Chief Complaint: EDAltMentalStatus Stated Complaint: AMS-2DAYS/CONFUSSED Time Seen by Provider: 04/28/17 15:56 Hx Obtained From: Patient Onset/Duration: Unknown Timing: Constant Severity Initially: Mild Severity Currently: Mild Character: Confusion Aggravating Factor(s): Nothing Alleviating Factor(s): Nothing Associated Signs And Symptoms: Negative: Dizziness, Seizure, Nausea - Allergies/Home Medications Allergies/Adverse Reactions: Allergies Allergy/AdvReac Type Severity Reaction Status Date / Time No Known Allergies Allergy Verified 04/12/17 10:03 PMH/Surg Hx/FS Hx/Imm Hx Previously Healthy: Yes Endocrine/Hematology History: Reports: Hx Diabetes Cardiovascular History: Reports: Hx Coronary Artery Disease - CABG, Hx Hypercholesterolemia, Hx Hypertension Denies: Hx Congestive Heart Failure, Hx Pacemaker/ICD History: Reports: Hx Kidney Stones, Other Problems/Disorders - prostatectomy for cancer Denies: Hx Renal Disease Musculoskeletal History: Reports: Hx Back Problems - recent lower back pain Sensory History: Reports: Hx Contacts or Glasses Denies: Hx Hearing Aid Opthamlomology History: Reports: Hx Contacts or Glasses Psychiatric History: Denies: Hx Panic Disorder - Cancer History Cancer Type, Location and Year: PROSTATE Hx Chemotherapy: No - Surgical History Surgery Procedure, Year, and Place: QUADRUPLE BYPASS IN 1997. REMOVED PROSTATE IN 1998. 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 Hx Anesthesia Reactions: No - Immunization History Hx Pertussis Vaccination: No Immunizations Up to Date: Unable to Obtain/Confirm Infectious Disease History: No Infectious Disease History: Denies: Traveled Outside the [place] in Last 30 Days - Social History Occupation: Unemployed Lives: With Family Alcohol Use: None Alcohol Amount: 4 oz day Hx Substance Use: Yes Substance Use Type: Reports: None Hx Tobacco Use: No Smoking Status (MU): Never Smoked Tobacco Have You Smoked in the Last Year: No Review of Systems Constitutional: Negative Negative: Fever, Chills, Fatigue Cardiovascular: Negative Negative: Palpitations, Chest Pain Respiratory: Negative Negative: Shortness Of Breath, Cough Genitourinary: Negative Positive: no symptoms reported, see HPI Positive: Arthralgia - left knee Negative: Headache, Weakness, Paresthesia, Slurred Speech Negative: Anxious, Depressed All Other Systems Reviewed And Are Negative: Yes Physical Exam Triage Information Reviewed: Yes Vital Signs On Initial Exam: Initial Vitals Temp Pulse Resp BP Pulse Ox 97.2 F 96 16 101/78 100 04/28/17 14:06 04/28/17 14:06 04/28/17 14:06 04/28/17 14:06 04/28/17 14:06 Vital Signs Reviewed: Yes Appearance: Positive: Well-Appearing, Well-Nourished Skin: Positive: Warm, Skin Color Reflects Adequate Perfusion Eyes: Positive: Normal, IOANA Neck: Positive: Supple, No Lymphadenopathy Respiratory/Lung Sounds: Positive: Clear to Auscultation, Breath Sounds Present Cardiovascular: Positive: Normal, RRR, Pulses are Symmetrical in both Upper and Lower Extremities Musculoskeletal: Positive: Normal, Strength/ROM Intact Neurological: Positive: Normal, Sensory/Motor Intact, Alert, Oriented to Person Place, Time, CN Intact II-III, Reflexes Intact, Normal Gait, Finger to Nose, Facial Symmetry, Speech Normal. Negative: Abnormal Gait, Disoriented, Facial Droop, Slurred Speech, Dysphagia Psychiatric: Positive: Normal AVPU Assessment: Alert - [place] Coma Scale Coma Scale Total: 15 Diagnostics - Vital Signs Vital Signs Temp Pulse Resp BP Pulse Ox 04/28/17 15:47 96.6 F 100 19 181/115 99 04/28/17 14:06 97.2 F 96 16 101/78 100 - Laboratory Lab Results: Lab Results 04/28/17 04/28/17 04/28/17 Range/Units 16:04 16:04 16:04 WBC 9.9 (3.5-10.8) 10^3/ul RBC 3.87 L (4.0-5.4) 10^6/ul Hgb 12.1 L (14.0-18.0) g/dl Hct 36 L (42-52) % MCV 93 (80-94) fL MCH 31 (27-31) pg MCHC 34 (31-36) g/dl RDW 13 (10.5-15) % Plt Count 460 H D (150-450) 10^3/ul MPV 8 (7.4-10.4) um3 Neut % (Auto) 68.1 (38-83) % Lymph % (Auto) 16.9 L (25-47) % [place] % (Auto) 11.0 H (1-9) % Eos % (Auto) 3.1 (0-6) % Baso % (Auto) 0.9 (0-2) % Absolute Neuts (auto) 6.7 (1.5-7.7) 10^3/ul Absolute Lymphs (auto) 1.7 (1.0-4.8) 10^3/ul Absolute Monos (auto) 1.1 H (0-0.8) 10^3/ul Absolute Eos (auto) 0.3 (0-0.6) 10^3/ul Absolute Basos (auto) 0.1 (0-0.2) 10^3/ul Absolute Nucleated RBC 0 10^3/ul Nucleated RBC % 0 INR (Anticoag Therapy) (0.89-1.11) Sodium 137 (133-145) mmol/L Potassium 3.9 (3.5-5.0) mmol/L Chloride 101 (101-111) mmol/L Carbon Dioxide 25 (22-32) mmol/L Anion Gap 11 (2-11) mmol/L BUN 26 H (6-24) mg/dL Creatinine 1.21 H (0.67-1.17) mg/dL Est GFR ( Amer) 75.0 (>60) Est GFR (Non-Af Amer) 58.3 (>60) BUN/Creatinine Ratio 21.5 H (8-20) Glucose 142 H (70-100) mg/dL Lactic Acid 2.3 H* (0.5-2.0) mmol/L Calcium 9.9 (8.6-10.3) mg/dL Total Bilirubin 1.00 (0.2-1.0) mg/dL AST 18 (13-39) U/L ALT 24 (7-52) U/L Alkaline Phosphatase 56 (34-104) U/L Troponin I 0.00 (<0.04) ng/mL C-React Prot High Sens 6.80 mg/L B-Natriuretic Peptide ( - 100) pg/mL Total Protein 7.8 (6.4-8.9) g/dL Albumin 4.3 (3.2-5.2) g/dL Globulin 3.5 (2-4) g/dL Albumin/Globulin Ratio 1.2 (1-3) 04/28/17 04/28/17 Range/Units 16:04 16:04 WBC (3.5-10.8) 10^3/ul RBC (4.0-5.4) 10^6/ul Hgb (14.0-18.0) g/dl Hct (42-52) % MCV (80-94) fL MCH (27-31) pg MCHC (31-36) g/dl RDW (10.5-15) % Plt Count (150-450) 10^3/ul MPV (7.4-10.4) um3 Neut % (Auto) (38-83) % Lymph % (Auto) (25-47) % [place] % (Auto) (1-9) % Eos % (Auto) (0-6) % Baso % (Auto) (0-2) % Absolute Neuts (auto) (1.5-7.7) 10^3/ul Absolute Lymphs (auto) (1.0-4.8) 10^3/ul Absolute Monos (auto) (0-0.8) 10^3/ul Absolute Eos (auto) (0-0.6) 10^3/ul Absolute Basos (auto) (0-0.2) 10^3/ul Absolute Nucleated RBC 10^3/ul Nucleated RBC % INR (Anticoag Therapy) 1.28 H (0.89-1.11) Sodium (133-145) mmol/L Potassium (3.5-5.0) mmol/L Chloride (101-111) mmol/L Carbon Dioxide (22-32) mmol/L Anion Gap (2-11) mmol/L BUN (6-24) mg/dL Creatinine (0.67-1.17) mg/dL Est GFR ( Amer) (>60) Est GFR (Non-Af Amer) (>60) BUN/Creatinine Ratio (8-20) Glucose (70-100) mg/dL Lactic Acid (0.5-2.0) mmol/L Calcium (8.6-10.3) mg/dL Total Bilirubin (0.2-1.0) mg/dL AST (13-39) U/L ALT (7-52) U/L Alkaline Phosphatase (34-104) U/L Troponin I (<0.04) ng/mL C-React Prot High Sens mg/L B-Natriuretic Peptide 18 ( - 100) pg/mL Total Protein (6.4-8.9) g/dL Albumin (3.2-5.2) g/dL Globulin (2-4) g/dL Albumin/Globulin Ratio (1-3) Result Diagrams: 04/28/17 16:04 04/28/17 16:04 Lab Statement: Any lab studies that have been ordered have been reviewed, and results considered in the medical decision making process. Altered Mental Statu Course/Dx - Course Course Of Treatment: Patient is evaluated based on wifes assessment of AMS. She states he has been confused recently with a few episodes she points out to provider. Both occurred in the lay out inspector hours and possibly related to a type of sundowning behavior. She also states he has been sleeping about every 1 hour for 20 minutes and talking in his sleep which is not normal for him. During his course of treatment, he is sent to CT brain. No acute abnormalities. EKG looked OK. Trop 0.0. Complete neuro exam completed and WNL. Normal head/face inspection with no cephalohematoma. Reflexes intact. EOMI , IOANA, visual acuity intact. No obvious confusion or memory loss per patient and family. MMSE OK. GCS 15. Patient oriented to person, place and date. No obvious deformity or signs of trauma. Finger to nose, heel to toe OK. Speech normal, facial symmetry, normal gait, CN II-III intact. Patient denies LOC. ROM , strength, reflexes in upper and lower extremity intact, sensation intact. Labs obtained and found to be dehydrated. Given 2 large cups of fluid and 1L NS. UA shows dark urine with no leuks or SBC. However, he has been on abx since his knee operation (known which abx). agrees to have patient follow up with PCP this or next week and return if these symptoms become worse or different. On exam, no facial droop, slurred speech or other abnormalities noted. GCS 15 - Diagnoses Differential Diagnosis/HQI/PQRI: Other - confusion Discharge Diagnoses: Dehydration Discharge - Discharge Plan Condition: Stable Disposition: HOME Patient Education Materials: Dehydration (ED) Referrals: Francisco Kwong MD [Primary Care Provider] - Additional Instructions: Follow up with your PCP. Call for appt tomorrow morning If you develop any worsening symptoms, return to the ED immediately Drink plenty of fluids - 3 Liters per day Continue with your antibiotics as prescribed.
[2017-04-28 19:01] LABS: Urine Bacteria Absent (Absent); Urine Bilirubin Negative (Negative); Urine Glucose 3+(>=500 mg/dL) (Negative); Urine Nitrite Negative (Negative)
[2017-04-28 19:09] VITALS: BP 112/80
== END | disposition home or self-care (01) ==
LOC: ED 14:00
DX: E86.0 Dehydration (principal); E11.9 Type 2 diabetes mellitus without complications; I25.10 Atherosclerotic heart disease of native coronary artery without angina pectoris; I10 Essential (primary) hypertension; Z95.1 Presence of aortocoronary bypass graft; E78.00 Pure hypercholesterolemia, unspecified; Z87.442 Personal history of urinary calculi; Z96.652 Presence of left artificial knee joint; Z90.79 Acquired absence of other genital organ(s)
CPT/HCPCS: 36415; 70450; 80053; 81003; 81015; 83605; 83880; 84484; 85025; 85610; 86141; 93005; 96360; 99283

== ENCOUNTER 2017-08-18 12:52 | Emergency (ER) | payer MEDICARE ==
--- OUTSIDE RECORDS SUMMARY | 2017-08-18 15:19 | XMS REPORT ---
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 Active Onset: 03/07/2017 Athscl heart disease of [place] Chilo Espino M.D., Active coronary artery w/o ang pctrs FACC, FASNC Onset: 07/25/2017 Neurogenic claudication Tello Prado M.D. 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 ETOH Use Drinks 2 Alcoholic Beverages Per Day Smoking Patient has never smoked Recreational Drug Use Denies Drug Use Daily Caffeine Consumes on average 1 cup of regular coffee per day Exercise Type/Frequency Does not exercise General Hx Text Allergies, Adverse Reactions, Alerts Date Description Reaction Status Severity Comments 01/24/2014 NKDA active Medications Medication Date Status Form Strength Qnty SIG Indications Ordering Provider Toprol XL 04/21/ Active Tablets ER 25mg 90tabs 1 by I25.718 Chilo 2016 24HR mouth Juan Luis every day Minh Espino, [facility] [place] Aspirin 04/28/ Active Chewtabs 81mg 1 po Chilo 2015 daily Juan Luis Espino M.D., [facility] [place] Metformin HCL / Active 500mg 2 tablets Unknown 0000 bid Januvia / Active 100mg 1 daily Unknown 0000 Crestor / Active Tablets 20mg 90tabs 1 by Unknown 0000 mouth every day Diovan / Active Tablets 80mg 90tabs 1 by Unknown 0000 mouth every day Invokana / Active Tablets 100mg One Unknown 0000 tablet daily Lexapro / Active Tablets 20mg 1 by Unknown 0000 mouth every day Cephalexin 04/22/ Hx Tablets 500mg 28tabs 1 by M25.562 Mariana 2016 - mouth Ryan, 05/03/ four M.D. 2017 times a day for 7 days Cyclobenzaprine 04/22/ Hx Tablets 10mg 60tabs take 1 M25.562 Mariana HCL 2016 - tab by Ryan, 05/31/ mouth 2 M.D. 2017 times a day as needed Oxycodone-Acetami 04/10/ Hx Tablets 5-325mg 90tabs 1-2 tabs Mariana nophen 2016 - by mouth Ryan, 05/31/ every 4-6 M.D. 2017 hours as needed for pain Colace 04/10/ Hx Capsules 100mg 90caps 1 tab by Mariana 2016 - mouth 2-3 Ryan, 05/31/ times a M.D. 2016 day as needed Coumadin 03/30/ Hx Tablets 2mg 90tabs take 1-3 Mariana 2016 - tabs by Ryan, 05/31/ mouth at M.D. 2017 5 at night as directed Zetia 11/16/ Hx Tablets 10mg 90tabs 1 po qd Gunnar 2012 - (Pt no Miki Davis, Minh 2016 taking) Medications Administered in Office Medication Date Status Form Strength Qnty SIG Indications Ordering Provider Inj, Administered Injection Chilo Mcknight Regadenoson, 017 Espino, 0.1 MG Alena.Miki, FACC, FASNC Technetium TC Administered Injection Chilo Mcknight 99M 017 Srinivas TetrofosminMinh, FACC, Per Unit Dose FASNC Up To 40 Millicuries Technetium TC Administered Injection Chilo Mcknight 99M 017 Srinivas TetrofosminMinh, FACC, Per Unit Dose FASNC Up To 40 Millicuries Technetium TC Administered Injection Gunnar Livingston 99M 014 Minh Davis Tetrofosmin, Per Unit Dose Up To 40 Millicuries Vital Signs Date Vital Result Comment 06/29/2017 Height 70 inches 5'10" Weight 195.00 lb Heart Rate 70 /min BP Systolic 116 mmHg BP Diastolic 65 mmHg Body Temperature 95.8 F BMI (Body Mass Index) 28.0 kg/m2 06/01/2017 Height 70 inches 5'10" Weight 195.00 lb BP Systolic 136 mmHg BP Diastolic 68 mmHg Body Temperature 98.5 F BMI (Body Mass Index) 28.0 kg/m2 05/04/2017 Height 70 inches 5'10" Weight 195.00 lb Heart Rate 88 /min BP Systolic 131 mmHg BP Diastolic 82 mmHg Pain Level 5 BMI (Body Mass Index) 28.0 kg/m2 04/22/2017 Height 70 inches 5'10" Weight 195.00 lb BP Systolic 115 mmHg BP Diastolic 60 mmHg Body Temperature 98.1 F BMI (Body Mass Index) 28.0 kg/m2 04/05/2017 Height 70 inches 5'10" Weight 194.00 lb Heart Rate 76 /min BP Systolic Sitting 128 mmHg Lue reg cuff BP Diastolic Sitting 64 mmHg Lue reg cuff BP Systolic Standing 122 mmHg Lue BP Diastolic Standing 68 mmHg Lue Respiratory Rate 18 /min BMI (Body Mass Index) 27.8 kg/m2 Ejection Fraction 55-60% 04/19/16 03/30/2017 Height 70 inches 5'10" Weight 200.00 lb BP Systolic 116 mmHg BP Diastolic 68 mmHg Respiratory Rate 18 /min Body Temperature 97.8 F Pain Level 0 BMI (Body Mass Index) 28.7 kg/m2 03/07/2017 Height 70 inches 5'10" Weight 197.00 lb with shoes Heart Rate 74 /min BP Systolic Sitting 128 mmHg Rue reg cuff BP Diastolic Sitting 76 mmHg Rue reg cuff BP Systolic Standing 124 mmHg Rue reg cuff BP Diastolic Standing 74 mmHg Rue reg cuff Respiratory Rate 16 /min BMI (Body Mass Index) 28.3 kg/m2 Ejection Fraction 55-60% 04/19/2016-echo 01/21/2017 Height 70 inches 5'10" Weight 200.00 lb Heart Rate 75 /min BP Systolic 125 mmHg BP Diastolic 74 mmHg Body Temperature 97.4 F BMI (Body Mass Index) 28.7 kg/m2 06/02/2016 Height 69 inches 5'9" Weight 193.00 lb w/ shoes Heart Rate 64 /min BP Systolic Sitting 126 mmHg Lue, reg cuff BP Diastolic Sitting 72 mmHg Lue, reg cuff BP Systolic Standing 130 mmHg Lue BP Diastolic Standing 76 mmHg Lue Respiratory Rate 16 /min BMI (Body Mass Index) 28.5 kg/m2 Ejection Fraction 55-60% as of 04/19/16 echo 04/21/2016 Height 69 inches 5'9" Weight 194.00 lb with shoes Heart Rate 62 /min BP Systolic Sitting 146 mmHg Rue reg cuff BP Diastolic Sitting 72 mmHg Rue reg cuff BP Systolic Standing 150 mmHg " " BP Diastolic Standing 80 mmHg " " Respiratory Rate 16 /min BMI (Body Mass Index) 28.6 kg/m2 Ejection Fraction 55-60% echo 04/19/16 04/28/2015 Height 69 inches 5'9" Weight 199.00 lb w/o shoes Heart Rate 56 /min irreg BP Systolic Sitting 120 mmHg Rue, reg cuff BP Diastolic Sitting 76 mmHg Rue, reg cuff BP Systolic Standing 114 mmHg Rue BP Diastolic Standing 80 mmHg Rue Respiratory Rate 18 /min BMI (Body Mass Index) 29.4 kg/m2 01/24/2014 Height 69 inches 5'9" Weight 200.00 lb no shoes Heart Rate 72 /min BP Systolic Sitting 116 mmHg LA, reg cuff BP Diastolic Sitting 60 mmHg LA, reg cuff BP Systolic Standing 114 mmHg LA BP Diastolic Standing 68 mmHg LA Respiratory Rate 14 /min BMI (Body Mass Index) 29.5 kg/m2 Results Test Date Test Result H/L Range Note Inr/Protime 05/06/2017 Inr 3.01 High 0.89-1.11 1 Inr/Protime 05/02/2017 Inr 1.79 High 0.89-1.11 2 Inr/Protime 04/28/2017 Inr 1.28 High 0.89-1.11 Type & Screen 03/30/2017 Patient Blood Type A Positive Antibody Screen NEGATIVE Urine Culture And 03/30/2017 Urine Culture SEE RESULT BELOW 3 Sensitivities Comp Metabolic Panel 03/30/2017 Sodium 138 mmol/L 133-145 Potassium 3.9 mmol/L 3.5-5.0 Chloride 102 mmol/L 101-111 Co2 Carbon Dioxide 27 mmol/L 22-32 Anion Gap 9 mmol/L 2-11 Glucose 93 mg/dL 70-100 Blood Urea Nitrogen 20 mg/dL 6-24 Creatinine 0.88 mg/dL 0.67-1.17 BUN/Creatinine Ratio 22.7 High 8-20 Calcium 9.4 mg/dL 8.6-10.3 Total Protein 6.9 g/dL 6.4-8.9 Albumin 3.9 g/dL 3.2-5.2 Globulin 3.0 g/dL 2-4 Albumin/Globulin Ratio 1.3 1-3 Total Bilirubin 1.80 mg/dL High 0.2-1.0 Alkaline Phosphatase 40 U/L 34-104 Alt 34 U/L 7-52 Ast 19 U/L 13-39 Egfr Non- 84.2 >60 Egfr 108.3 >60 4 Laboratory test finding 03/30/2017 Partial Thrombo Time 27.6 seconds 26.0 -36.3 PTT Inr/Protime 03/30/2017 Inr 0.96 0.89-1.11 Urinalysis Profile 03/30/2017 Urine Color Yellow Urine Appearance Clear Urine Specific [place] 1.028 1.010-1.030 Urine pH 5.0 5-9 Urine Urobilinogen Negative Negative Urine Ketones Negative Negative Urine Protein Negative Negative Urine Leukocytes Negative Negative Urine Blood Negative Negative Urine Nitrite Negative Negative Urine Bilirubin Negative Negative Urine Glucose 3+(>=500 mg/dL) Negative CBC No Diff 03/30/2017 White Blood Count 8.1 10^3/uL 3.5-10.8 Red Blood Count 4.52 10^6/uL 4.0-5.4 Hemoglobin 14.4 g/dL 14.0-18.0 Hematocrit 42 % 42-52 Mean Corpuscular Volume 94 fL 80-94 Mean Corpuscular Hemoglobin 32 pg High 27-31 Mean Corpuscular HGB Conc 34 g/dL 31-36 Red Cell Distribution Width 14 % 10.5-15 Platelet Count 189 10^3/uL 150-450 Mean Platelet Volume 10 um3 7.4-10.4 1 CALL STAT RESULT [id number] RESULTS FAX STAT RESULT [id number] PLEASE CALL STAT RESULTS TO [phone] SEE RESULT BELOW Name: PRASANTH BEST : [address]: Mariana Davis MD Acct: [id number] Unit: [id number] AGE: 76 Location: [facility] Re03/30/17 SEX: M Status: REG REF SPEC: [id number] IVÁN: 03/30/17-[address] [facility] [address]: Mariana Davis MD REQ: [id number] RECD: 03/30/17 STATUS: COMP _ SOURCE: URINE SPDESC: ORDERED: Urine Culture QUERIES: Urine Source: Random Procedure Result Reported Site Urine Culture Final 03/31/17- 913 ML No growth of clinically significant organisms * ML - MAIN LAB (PSC1) . END OF REPORT * ML=Testing performed at Main Lab DEPARTMENT OF PATHOLOGY, [address] [place] [address] Sivakumar Mcconnell M.D. Director [facility] # [id number] 4 Because ethnic data is not always readily available, this report includes an eGFR for both -Americans and non- Americans. The National Kidney Disease Education Program (NKDEP) does not endorse the use of the MDRD equation for patients that are not between the ages of 18 and 70, are , have extremes of body size, muscle mass, or nutritional status, or are non- or non-. According to the National Kidney Foundation, irrespective of diagnosis, the stage of the disease is based on the level of kidney function: Stage Description GFR(mL/min/1.73 m(2)) 1 Kidney damage with normal or decreased GFR 90 2 Kidney damage with mild decrease in GFR 60-89 3 Moderate decrease in GFR 30-59 4 Severe decrease in GFR 15-29 5 Kidney failure <15 (or dialysis) Procedures Date CPT Code Description Status 04/12/2017 10424 TKR Total Knee Replacement Completed 04/12/2017 91778 TKR Total Knee Replacement Completed 04/05/2017 47134 EKG Tracing & Interpretation Completed 04/04/2017 67607 Stress Test Completed 04/04/2017 95624 Myocardial Perfusion Imaging Tomographic (Spect) Completed Multiple Studies 03/07/2017 71482 EKG Tracing & Interpretation Completed 04/19/2016 99958 ECHO Transthoracic, Real-Time 2D With Doppler And Color Completed Flow 04/28/2015 97169 EKG Tracing & Interpretation Completed 02/06/2014 22664 Stress Test Completed 02/06/2014 32755 Myocardial Perfusion Imaging Tomographic (Spect) Completed Multiple Studies 01/24/2014 82210 EKG Tracing & Interpretation Completed 12/04/2012 85087 EKG Tracing & Interpretation Completed Encounters Type Date Location Provider CPT E/M Dx Office Visit 07/25/2017 [facility] Tello Eve, [address] M48.062 11:30a Of Vilma Wilkinson Office Visit 04/14/2017 [facility],hipolito Oliver N.PSteffanie 25890 E11.65 7:16a Hospitalists I25.810 Z98.890 I10 Office Visit 04/13/2017 7:15a [facility],SHARONA Calderon 87376 E11.65 Hospitalists I25.810 Z98.890 I10 Office Visit 04/12/2017 7:14a [facility],SHARONA Calderon 77290 E11.65 Hospitalists I25.810 I10 Z98.890 Office Visit 04/05/2017 2:30p [facility] Of Chilo Espino, 18681 I25.10 Vilma Wilkinson, [facility] Z01.810 M17.12 Office Visit 03/07/2017 10:00a [facility] Of Chilo Espino, 85285 I25.810 Vilma Wilkinson, [facility] Z01.810 I49.3 I49.1 M17.11 Office Visit 01/21/2017 8:00a [facility] Of Mariana Davis M.D. 66428 M25.562 C.M.A. M25.561 M25.462 M25.461 M17.0 Office Visit 06/02/2016 8:45a [facility] Chilo Mcknight Espino, 08674 I25.810 Vilma Wilkinson, [facility] Office Visit 04/21/2016 8:45a [facility] Chilo Espino, 60937 I25.718 Vilma Wilkinson, FAC, [facility] Office Visit 04/28/2015 9:30a [facility] Mcknight Espino, 07778 I25.718 Vilma Wilkinson, [facility] Office Visit 01/24/2014 8:15a [facility] Gunnar Davis, 26704 414.9 Vilma Wilkinson 414.02 Office Visit 12/04/2012 3:00p [facility] Maria Teresa Davis, 15786 414.9 Vilma At [facility] Minh 414.02 401.9 Plan of Care 07/25/2017 - Tello Prado M.D.M48.062 Spinal stenosis, lumbar region with neurogenic claudicationNew Xrays:MRI Lumbar Spine W/OFollow up:After diagnostic study
[2017-08-18 15:29] VITALS: BP 150/84
--- NOTE | 2017-08-18 16:21 | RAD ---
INDICATION: Right wrist injury. TECHNIQUE: 3 views of the right wrist were obtained. FINDINGS: The bones are in normal alignment. No fracture is seen. There is severe osteoarthritic change in the first carpal metacarpal joint. IMPRESSION: NO EVIDENCE FOR FRACTURE, IF THE PATIENT'S SYMPTOMS PERSIST RECOMMEND FOLLOW-UP IMAGING.
--- NOTE | 2017-08-18 16:23 | RAD ---
INDICATION: Right hand injury. TECHNIQUE: 2 views of the right hand were obtained. FINDINGS: There appears to be diffuse soft tissue swelling. No acute fracture is seen. There is moderate to severe arthritic change in the proximal and distal interphalangeal joints. IMPRESSION: NO EVIDENCE FOR FRACTURE, IF THE PATIENT'S SYMPTOMS PERSIST RECOMMEND FOLLOW-UP IMAGING.
--- NOTE | 2017-08-18 16:24 | RAD ---
INDICATION: Right shoulder injury. TECHNIQUE: 4 views of the right shoulder were obtained. FINDINGS: The bones are in normal alignment. No fracture is seen. There calcifications adjacent to the superior lateral aspect of the humeral head. IMPRESSION: 1. NO EVIDENCE FOR FRACTURE. 2. FINDINGS SUGGESTIVE OF CALCIFIC TENDINITIS.
--- NOTE | 2017-08-19 21:52 | UC ---
Ninfa Shahid Gabriel, scribed for Eduardo Melton MD on 08/18/17 at 1558 . Hand/Wrist HPI - HPI Summary HPI Summary: This patient is a 76 year old M presenting to [facility] s/p fall that occurred last night. Pt states he fell on ice landing on his right shoulder and right hand. The patient rates the pain 4/10 in severity. Patient reports swelling and ecchymosis of right hand. Additionally he is reporting pain at right hand and right shoulder. Patient denies wrist pain. Patient had a recent knee replacement. - History Of Current Complaint Chief Complaint: UCUpperExtremity Stated Complaint: HAND INJURY Time Seen by Provider: 08/18/17 15:37 Hx Obtained From: Patient Onset/Duration: Sudden Onset, Lasting Days - 1, Still Present Severity Initially: Moderate Severity Currently: Moderate Pain Intensity: 4 Pain Scale Used: 0-10 Numeric Associated Signs And Symptoms: Positive: Swelling, Bruising - Allergies/Home Medications Allergies/Adverse Reactions: Allergies Allergy/AdvReac Type Severity Reaction Status Date / Time No Known Allergies Allergy Verified 08/18/17 15:30 PMH/Surg Hx/FS Hx/Imm Hx Endocrine History: Diabetes - Surgical History Surgical History: Yes Surgery Procedure, Year, and Place: QUADRUPLE BYPASS IN 1997. REMOVED PROSTATE IN 1998. 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 - Family History Known Family History: Positive: Cardiac Disease Negative: Hypertension, Renal Disease, Respiratory Disease, Seizure Disorder - Social History Lives: With Family Alcohol Use: Daily Alcohol Amount: 10 drinks per week Substance Use Type: None Smoking Status (MU): Never Smoked Tobacco Have You Smoked in the Last Year: No - Immunization History Most Recent Influenza Vaccination: fall 2015 Most Recent Pneumonia Vaccination: none Review of Systems Skin: Bruising - at right hand Musculoskeletal: Negative - wrist pain, Other: - pain at right hand and shoulder All Other Systems Reviewed And Are Negative: Yes Physical Exam Triage Information Reviewed: Yes Vital Signs: Initial Vital Signs Temp 98.9 F 08/18/17 15:26 Pulse 80 08/18/17 15:26 Resp 18 08/18/17 15:26 BP 150/84 08/18/17 15:26 Pulse Ox 98 08/18/17 15:26 Vital Signs Reviewed: Yes - Additional Comments Vital signs: reviewed General: Patient is comfortable lying in stretcher with no signs of distress HEENT: within normal limits Lungs: CTA B/L CVS: S1 & S2 present. No murmurs appreciated. ABDOMEN: Soft, non-tender. No signs of distention. No rebound no guarding, and no masses palpated. Bowel sounds are normal. EXTREMITIES: FROM in all major joints, no edema, no cyanosis or clubbing. Right shoulder and right wrist w/o ecchymosis or deformity. Full ROM. Right hand with echymosis in the dorsal and ventral aspect of the hand. 1st, 2nd and 3rd digit with swelling. Good pulses and capillary refill. NEURO: Alert and oriented x 3. No acute neurological deficits. Speech is normal and follows commands. SKIN: Dry and warm Diagnostics - Radiology hand xray Radiology Interpretation Completed By: Radiologist - NO EVIDENCE FOR FRACTURE, IF THE PATIENT'S SYMPTOMS PERSIST RECOMMEND FOLLOW-UP IMAGING. Dr. Melton has reviewed this report. shoulder xray Radiology Interpretation Completed By: Radiologist - 1. NO EVIDENCE FOR FRACTURE. 2. FINDINGS SUGGESTIVE OF CALCIFIC TENDINITIS. Dr. Melton has reviewed this report. wrist xray Radiology Interpretation Completed By: Radiologist - NO EVIDENCE FOR FRACTURE, IF THE PATIENT'S SYMPTOMS PERSIST RECOMMEND FOLLOW-UP IMAGING. Dr. Melton has reviewed this report. Hand/Wrist Course/Dx - Course Course Of Treatment: This patient is a 76 year old M presenting to [facility] s/p fall that occurred last night. Pt states he fell on ice landing on his right shoulder and right hand. The patient rates the pain 4/10 in severity. Patient reports swelling and ecchymosis of right hand. Additionally he is reporting pain at right hand and right shoulder. Patient denies wrist pain. Patient had a recent knee replacement. Wrist X-ray reveals, NO EVIDENCE FOR FRACTURE, IF THE PATIENT'S SYMPTOMS PERSIST RECOMMEND. FOLLOW-UP IMAGING. Hand X-ray reveals, NO EVIDENCE FOR FRACTURE, IF THE PATIENT'S SYMPTOMS PERSIST RECOMMEND. FOLLOW- UP IMAGING. Shoulder X-ray reveals, 1. NO EVIDENCE FOR FRACTURE. 2. FINDINGS SUGGESTIVE OF CALCIFIC TENDINITIS. . I discussed all the findings and test results with the patient. Pt was instructed to return to the urgent care or go to ER immediately if any of the symptoms return or worsens. Plan of care was discussed with the patient and pt understands and agrees. All questions were answered to patient satisfaction. There were no further complaints or concerns. Patient will be discharged and follow up from PCP. The patient is agreeable with this plan. - Differential Dx/Diagnosis Differential Diagnosis/HQI/PQRI: Contusion, Dislocation, Fracture, Sprain, Strain Provider Diagnoses: Wrist pain. Carpal tunel syndrome Discharge - Discharge Plan Condition: Stable Disposition: HOME Patient Education Materials: Wrist Injury (ED), Arthralgia (ED), Tendinitis (ED ), Swollen Joint (ED) Referrals: Francisco Kwong MD [Primary Care Provider] - Additional Instructions: Alternating Ice and warm compresses every 15 minutes Elevate as much as possible If pain persist return to the UC or go to the ED. The documentation as recorded by the Ninfa dempsey Gabriel accurately reflects the service I personally performed and the decisions made by , Eduardo Melton MD.
== END 2017-08-18 16:45 | disposition home or self-care (01) ==
LOC: UCEAST 12:52
DX: M25.531 Pain in right wrist (principal); G56.00 Carpal tunnel syndrome, unspecified upper limb; S49.91XA Unspecified injury of right shoulder and upper arm, initial encounter; S69.91XA Unspecified injury of right wrist, hand and finger(s), initial encounter; W00.0XXA Fall on same level due to ice and snow, initial encounter; Y93.9 Activity, unspecified; Y92.9 Unspecified place or not applicable; E11.9 Type 2 diabetes mellitus without complications; Z95.1 Presence of aortocoronary bypass graft; Z96.652 Presence of left artificial knee joint
CPT/HCPCS: 99211; G0463

== ENCOUNTER 2019-06-25 08:19 | Emergency (ER) | payer MEDICARE ==
--- NOTE | 2019-06-25 09:29 | ED ---
Back Pain - HPI Summary HPI Summary: This patient is a 78-year-old male with a history of spinal stenosis and left knee replacement presenting to the ED 3 days after a fall. He states for the past 3 days, he has been bed bound due to diffuse low back pain as well as left knee pain. He states he feels weak intermittently to the bilateral lower extremities over the past several months and has appointment for a follow-up to a neurosurgeon in [place] and approximately one month due to spinal stenosis. He denies any bladder or bowel dysfunction. He denies any fevers, sweats, chills. He states when he fell, he believes he fell directly onto his lower spine as well as somehow to his bilateral knees, however is unsure specifically. He states he is feeling improved today, however did not want to wait for an MRI which is scheduled due to his fall. He is ambulatory now, however he continues to have to have the help/aid of surrounding objects. 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 [employer]inter Onset/Duration: Sudden Onset Onset/Duration: Started Days Ago Timing: Constant Back Pain Location: Is Discrete @ - low back and L knee Severity Initially: Moderate Severity Currently: Moderate Pain Intensity: 9 Pain Scale Used: 0-10 Numeric Character: Aching Aggravating Symptom(s): Movement Alleviating Symptom(s): Rest, Position Associated Signs And Symptoms: Negative: Swelling, Redness, Bruising - Risk Factors AAA Risk Factors: Negative TAD Risk Factors: Negative Cauda Equina Risk Factors: Negative Epidural Abscess Risk Factors: Negative - Allergies/Home Medications Allergies/Adverse Reactions: Allergies Allergy/AdvReac Type Severity Reaction Status Date / Time No Known Allergies Allergy Verified 06/25/19 08:23 PMH/Surg Hx/FS Hx/Imm Hx Previously Healthy: Yes Endocrine/Hematology History: Reports: Hx Diabetes - PRE DIABETIC Cardiovascular History: Reports: Hx Coronary Artery Disease - CABG, Hx Hypercholesterolemia, Hx Hypertension - GENUVIA Denies: Hx Congestive Heart Failure, Hx Pacemaker/ICD History: Reports: Hx Kidney Stones, Other Problems/Disorders - prostatectomy for cancer Denies: Hx Renal Disease Musculoskeletal History: Reports: Hx Back Problems - recent lower back pain Sensory History: Reports: Hx Contacts or Glasses Denies: Hx Hearing Aid Opthamlomology History: Reports: Hx Contacts or Glasses Neurological History: Reports: Other Neuro Impairments/Disorders - PAIN CLINIC PT Psychiatric History: Denies: Hx Panic Disorder - Cancer History Cancer Type, Location and Year: PROSTATE Hx Chemotherapy: No - Surgical History Surgery Procedure, Year, and Place: QUADRUPLE BYPASS IN 1997. REMOVED PROSTATE IN 1998. 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 Hx Anesthesia Reactions: No - Immunization History Hx Pertussis Vaccination: No Immunizations Up to Date: Yes Infectious Disease History: No Infectious Disease History: Denies: Traveled Outside the [place] in Last 30 Days - Family History Known Family History: Positive: Cardiac Disease Negative: Hypertension, Renal Disease, Respiratory Disease, Seizure Disorder - Social History Occupation: Unemployed Lives: With Family Alcohol Use: Daily Alcohol Amount: 10 drinks per week Hx Substance Use: Yes Substance Use Type: Reports: None Hx Tobacco Use: No Smoking Status (MU): Never Smoked Tobacco Have You Smoked in the Last Year: No Review of Systems Negative: Fever, Chills, Fatigue, Skin Diaphoresis Negative: Palpitations, Chest Pain Negative: Shortness Of Breath, Cough Genitourinary: Negative Positive: no symptoms reported, see HPI Positive: Arthralgia - low back pain, L knee pain. Negative: Myalgia Neurological: Negative All Other Systems Reviewed And Are Negative: Yes Physical Exam Triage Information Reviewed: Yes Vital Signs On Initial Exam: Initial Vitals Temp Pulse Resp BP Pulse Ox 97.4 F 81 19 131/96 91 06/25/19 08:21 06/25/19 08:21 06/25/19 08:21 06/25/19 08:21 06/25/19 08:21 Vital Signs Reviewed: Yes Appearance: Positive: Well-Appearing, Well-Nourished Skin: Positive: Warm, Skin Color Reflects Adequate Perfusion Head/Face: Positive: Normal Head/Face Inspection Eyes: Positive: EOMI, IOANA, Conjunctiva Clear Neck: Positive: Nontender, No Lymphadenopathy Respiratory/Lung Sounds: Positive: Clear to Auscultation, Breath Sounds Present Cardiovascular: Positive: RRR, Pulses are Symmetrical in both Upper and Lower Extremities Musculoskeletal: Positive: Pain @ - lumbar spine pain Neurological: Positive: Sensory/Motor Intact, Alert, Oriented to Person Place, Time, Speech Normal Psychiatric: Positive: Normal, Affect/Mood Appropriate AVPU Assessment: Alert Procedures - Sedation Patient Received Moderate/Deep Sedation with Procedure: No Diagnostics - Vital Signs Vital Signs Temp Pulse Resp BP Pulse Ox 06/25/19 08:21 97.4 F 81 19 131/96 91 - Laboratory Lab Statement: Any lab studies that have been ordered have been reviewed, and results considered in the medical decision making process. Back Pain Course/Dx - Course Course Of Treatment: Patient is evaluated for acute low back pain as well as left knee pain. He does have some ecchymosis and erythema just below the L knee without pain to palpation of the L knee. Able to flex and extend. Ambulating well, but with some assist d/t pain. Took hydrocodone this morning with good improvement. No weakness, numbness or tingling into the bilateral lower ext, but has been having this intermittently for many months, which was made worse after his fall [address] lumbar spine: IMPRESSION: Multilevel degenerative disc disease. At L3-L4 and L4-L5 broad-based protrusion, far lateral protrusions as well as facet and ligamentous hypertrophy appears to result in spinal stenosis of moderate degree. At L2-L3 and L1-L2 degenerative disc disease with broad-based protrusion is noted. No fracture is identified. Xray obtained: No evidence of fracture. Offered pain management, but pt declined. Discussed results with patient. He will f/u with neurosurgery and MRI as scheduled. Pt continue to ambulate. No current B/B dysfunction. Dx with fall, back pain, knee pain. - Diagnoses Differential Diagnosis/HQI/PQRI: Positive: Herniated Disc, Strain, Sprain Provider Diagnoses: Fall, Back pain, Knee pain Discharge ED - Sign-Out/Discharge Documenting (check all that apply): Patient Departure - Discharge Plan Condition: Stable Disposition: HOME Patient Education Materials: Lumbar Spinal Stenosis (ED) Referrals: Francisco Kwong MD [Primary Care Provider] - Additional Instructions: Please follow up with PCP as needed Continue to follow up with neurosurgery in [place] - Billing Disposition and Condition Condition: STABLE Disposition: Home
[2019-06-25 10:41] VITALS: BP 119/80
== END 2019-06-25 10:45 | disposition home or self-care (01) ==
LOC: ED 08:19
DX: M54.5 Low back pain (principal); M25.562 Pain in left knee; M51.36 Other intervertebral disc degeneration, lumbar region; I73.9 Peripheral vascular disease, unspecified; W19.XXXA Unspecified fall, initial encounter; Y92.9 Unspecified place or not applicable; Z96.652 Presence of left artificial knee joint; I25.10 Atherosclerotic heart disease of native coronary artery without angina pectoris; E78.00 Pure hypercholesterolemia, unspecified; I10 Essential (primary) hypertension; Z95.1 Presence of aortocoronary bypass graft; Z87.442 Personal history of urinary calculi; Z90.79 Acquired absence of other genital organ(s)
CPT/HCPCS: 72131; 99281